=== PATIENT | female | born 2005 | race Hispanic/Latino ===

== ENCOUNTER 2023-05-22 10:26 | Emergency (ER) | payer OTHER ==
[~2023-05-22] VITALS: Ht 165.1 cm; Wt 82.6 kg
[2023-05-22 10:28] VITALS: BP 128/68; PULSE 89; RESP 16
[2023-05-22] MEDS ORDERED: CETI10CA5 PO (11:58)
[2023-05-22] MEDS ORDERED: FAMOTIDINE 20MG TAB PO ONE (12:00)
[2023-05-22] MEDS ORDERED: DIPHENHYDRAMINE HCL 25 MG CAPSULE PO ONE (12:00)
== END 2023-05-22 13:05 | disposition home or self-care (01) ==
LOC: EDH 10:26
DX: T78.40XA Allergy, unspecified, initial encounter (principal); X58.XXXA Exposure to other specified factors, initial encounter
CPT/HCPCS: 99283; Q0163